=== PATIENT | male | born 1955 | race African-American/Black ===

== ENCOUNTER → 2017-05-10 | Day surgery (SDC) | payer BC ==
[~2017-05-10] VITALS: Ht 172.7 cm; Wt 127.0 kg
[~2017-05-10] MED LIST: ADLT ASA LOW81 MG PO; AMLODIPINE BESY10 MG PO; ASPIRIN 81 LOW81 MG; BP MED PO; CLONIDINE0.1 MG PO; EFFIENT10 MG PO; EFFIENT5 MG PO; FLEXERIL OR; GABAPENTIN300 MG PO; HYDROCHLOROT25 MG PO; LIPITOR40 M1 PO; LIPITOR40 MG OR; LIPITOR80 MG PO; LISINOPRIL20 M1 PO; LOPRESSOR 550 MG/TAB PO; LOTREL1 CA1 PO; MONOPRIL40 MG PO; NAPROSYN500 MG PO; NEXIUM40 M1 OR; SIMVASTATIN80 MG PO; TRAMADOL HCL50 MG PO
[2017-05-10 17:58] VITALS: BP 102/52
== END | disposition home or self-care (01) | DRG 951 ==
LOC: ENDO 14:15
PROVIDERS: ATTEND Internal Medicine Gastroenterology
PROC: 0DBN8ZX Excision of Sigmoid Colon, Via Natural or Artificial Opening Endoscopic, Diagnostic (ICD-10-PCS; principal; 2017-05-10)
DX: Z12.11 Encounter for screening for malignant neoplasm of colon (principal); I10 Essential (primary) hypertension; K63.5 Polyp of colon; K64.4 Residual hemorrhoidal skin tags; K64.8 Other hemorrhoids; E78.00 Pure hypercholesterolemia, unspecified; Z86.010 Personal history of colon polyps; Z95.5 Presence of coronary angioplasty implant and graft; Z85.46 Personal history of malignant neoplasm of prostate

== ENCOUNTER 2018-11-20 13:38 | Inpatient (IN) | payer BC ==
[~2018-11-20] VITALS: Ht 172.7 cm; Wt 128.0 kg
--- NOTE | 2018-11-20 14:08 | NUR ---
PT TRIAGED AND RETURNED TO WAITING ROOM WITH . PT AMBULATORY TO LOBBY/
--- NOTE | 2018-11-20 14:49 | NUR ---
P TMAB TO ROOM AND EKG PERFORMED ALL MONITORS ASSESSED. STILL C.O DIFFUSE ABD OAIN
--- NOTE | 2018-11-20 15:27 | NUR ---
MEDICATED FOR CRAMPING ABD PAIN AND NAUSEA
[2018-11-20 15:50] LABS: HEMATOCRIT 42.3 % (39.0-50.0); HEMOGLOBIN 14.9 g/dl (14.0-18.0); IMMATURE GRANULOCYTES 0.3 % (0.0-5.0); MEAN CELL VOLUME 77.2 fL CALC (80.0-100.0); MEAN CORPUSCULAR HGB 27.2 pG CALC (26.0-32.0); MEAN CORPUSCULAR HGB CONC 35.2 g/L CALC (32.0-36.0); NEUT# 8.37 thou/uL (1.82-7.42); RED BLOOD COUNT 5.48 mill/uL (4.70-6.10); RED CELL DISTRI WIDTH 13.2 % (11.5-15.5)
[2018-11-20 16:05] LABS: ALBUMIN 4.4 g/dL (3.2-5.0); ANION GAP 13 (6-22 (CALC)); BILIRUBIN, TOTAL 0.8 mg/dL (0.0-1.4); BUN 8 mg/dL (8-23); BUN/CREATININE RATIO 10 (12-20 (CALC)); CARBON DIOXIDE 29 mmol/l (22-30); CHLORIDE 101 mmol/l (95-108); CREATININE 0.8 mg/dL (0.7-1.3); GFR > 60 ML/MIN (>=60 (CALC)); GFR FOR AFR.AMER. > 60 ML/MIN (>=60 (CALC)); LIPASE 101 u/l (23-300); POTASSIUM 3.8 mmol/l (3.5-5.1); SGOT/AST 27 u/l (19-48); SODIUM 139 mmol/l (137-146); TOTAL PROTEIN 8.5 g/dL (6.3-8.2)
[2018-11-20 16:06] LABS: ALKALINE PHOSPHATASE 157 u/l (38-126)
--- NOTE | 2018-11-20 16:10 | NUR ---
PT REPORTS CONTINUED ABD PAIN, MD NOTIFIED AND AWAITING NEW ORDERS.
--- NOTE | 2018-11-20 16:30 | NUR ---
PT REPORTS PAIN 5/10 AT THIS TIME AND IS RESTING COMFORTABLY IN NAD. PT REPORTS THE "MORPHINE HAS JUST MASKED THE PAIN". ASKING IF THEY WILL BE DOING A CT WITH CONTRAST. MD NOTIFIED AND AWAITING NEW ORDERS.
--- NOTE | 2018-11-20 16:30 | NUR ---
PT MEDICATED PER ORDERED FOR 8/10 ABD PAIN. PT AND UPDATED ON PLAN OF CARE AND WAIT TIME. CALL BAEZA WITHIN REACH.
--- NOTE | 2018-11-20 18:30 | NUR ---
PT MOVED TO ROOM 13, URINAL GIVEN TO PT.
[2018-11-20] MEDS ORDERED: SIMVASTATIN20 MG PO (18:46)
[2018-11-20 18:56] LABS: URINE BILIRUBIN - DIPSTICK NEGATIVE (NEGATIVE); URINE BLOOD DIPSTICK NEGATIVE (NEGATIVE); URINE COLOR YELLOW; URINE GLUCOSE - DIPSTICK NEGATIVE (NEGATIVE); URINE KETONE NEGATIVE (NEGATIVE); URINE LEUK ESTERASE NEGATIVE (NEGATIVE); URINE NITRITE - DIPSTICK NEGATIVE (Negative); URINE PH 8.5 (4.5-8.0); URINE PROTEIN - DIPSTICK TRACE mg/dL (NEG-TRACE); URINE SPECIFIC GRAVITY 1.015
--- NOTE | 2018-11-20 18:56 | NUR ---
ERP AT BEDSIDE.
--- NOTE | 2018-11-20 19:46 | NUR ---
PT C/O RETURNED ABD PAIN, DR BEAN INFORMED.
--- NOTE | 2018-11-20 19:51 | NUR ---
DR BEAN AT BEDSIDE TO DISCUSS FINDINGS.
--- NOTE | 2018-11-20 20:10 | NUR ---
MEDICATED PER ERP ORDERS.
--- NOTE | 2018-11-20 20:35 | NUR ---
PT RELATED PAINS TAKING THE EDGE OFF. PAIN REMAINS 04/25. NO DISTRESS NOTED.
--- NOTE | 2018-11-20 20:52 | NUR ---
[facility] CALLED FOR REPORT, NURSE NOT AVAILABLE, WILL RETURN CALL.
--- NOTE | 2018-11-20 21:15 | NUR ---
REPORT CALLED TO [facility].
--- NOTE | 2018-11-20 21:17 | NUR ---
PT TO RM 263 WITH RN. PT COND STABLE.
--- NOTE | 2018-11-20 21:22 | NUR ---
PT ARRIVED TO MS2 VIA STRETCHER ACCOMPANIED BY FAMILY AND ER NURSE. ORIENTED TO ROOM AND CALL LIGHT. PT AMBULATED TO BATHROOM, NO SIGNS OF DISTRESS NOTED, RESP EVEN AND UNLABORED. PT C/O ABD PAIN 06/25. DISCUSSED POC, ADMISSION ASSESSMENT COMPLETED, CHARLIE LIGHT IN REACH,CONTINUE TO MONITOR.
[2018-11-20 21:25] VITALS: BP 174/82
--- NOTE | 2018-11-20 22:41 | NUR ---
PT MEDICATED FOR PAIN 06/25, WILL AWAIT RESULTS. OFFERED PT A SANDWICH, PT BECAME C/O NAUSEA, NO VOMITTING NOTED. PT MEDICATED WITH ZOFRAN. CALL LIGHT IN REACH,CONTINUE TO MONITOR.
--- NOTE | 2018-11-20 23:55 | NUR ---
PT RESTING IN BED, WITH CPAP FROM HOME, NO SIGNS OF DISTRESS NOTED, RESP EVEN AND UNLABORED. IV CIPRO HUNG AT THIS TIME. PT VOICES NO NEEDS OR COMPLAINTS AT THIS TIME. CALL LIGHT IN REACH,CONTINUE TO MONITOR.
[2018-11-21 03:59] VITALS: BP 144/75
--- NOTE | 2018-11-21 04:00 | NUR ---
PT RESTING IN BED WITH EYES CLOSED, NO SIGNS OF DISTRESS NOTED, RESP EVEN AND UNLABORED. CPAP FROM HOME ON. CALL LIGHT IN REACH,CONTINUE TO MONITOR.
--- NOTE | 2018-11-21 07:15 | NUR ---
PT REPORT RECIEVED FROM JASON GRAHAM. PT ASLEEP IN BED. NO S/S OF DISTRESS. CALL LIGHT IN REACH. WILL CONTINUE TO MONITOR.
[2018-11-21 08:23] VITALS: BP 156/80
--- NOTE | 2018-11-21 08:23 | NUR ---
PT A/O X3. SPEECH IS CLEAR. RESP EVEN AND UNLABORED. LUNG SOUNDS CLEAR. BOWEL SOUNDS ACTIVE X4. STRONG RADIAL AND PEDAL PULSES. #20 RAC NS@100. SITE APPEARS HEALTHY. PT C/O ACHING/THROBBING PAIN TO ABDOMEN. 9 OUT OF 10 ON PAIN SCALE. MEDICATED W/ 0.5 MG DILAUDID. REPOSITIONED FOR COMFORT. SKIN IS INTACT. PT DENIES ANY FURTHER NEEDS. NPO AT THIS TIME. SAFETY PRECAUTIONS IN PLACE. CALL LIGHT IN REACH. WILL CONTINUE TO MONITOR.
--- NOTE | 2018-11-21 12:10 | NUR ---
PT RESTING IN BED, C/O ABDOMINAL PAIN 5 OUT OF 10 ON PAIN SCALE. MEDICATION ADMINISTRATION DISCUSSED. PT STATES UNDERSTANDING. RELAXATION TECHNIQUES IN PLACE. CALL LIGHT IN REACH. WILL CONTINUE TO MONITOR.
--- NOTE | 2018-11-21 15:24 | NUR ---
DR. AL IN TO SEE PT
[2018-11-21 16:10] VITALS: BP 143/56
--- NOTE | 2018-11-21 19:00 | NUR ---
RECEIVED REPORT FROM DAY NURSE. PT RESTING QUIETLY IN BED WITH EYES CLOSED. AT BEDSIDE. NO NEEDS AT THIS TIME. CALL BAEZA IN REACH. WILL CONTINUE TO MONITOR.
[2018-11-21 19:23] VITALS: BP 150/68
--- NOTE | 2018-11-21 20:48 | NUR ---
PT RESTING IN BED WITH AT BEDSIDE. PT A&0 x3. PT RESTING WITH EYES CLOSED WITH CPAP MACHINE ON. REQUESTING PAIN MEDS FOR PT. ASSESMENT COMPLETED AT THIS TIME(SEE INTERVENTIONS) LUNG SOSUNDS CLEAR, HEART SOUNDS NORMAL, BOWEL SOUNDS ACTIVE, ABD TENDERNESS TO UPPER R QUAD, NO SWELLING OR EDEMA NOTED. NO OTHER NEEDS AT THIS TIME. CALL BAEZA IN REACH. WILL CONTINUE TO MONITOR.
[2018-11-22] VITALS (17 sets, daily range): BP systolic 105–163; BP diastolic 55–82
--- NOTE | 2018-11-22 | NUR ---
PT RESTING IN BED WITH CPAP ON. NO S/S OF DISTRESS NOTED. CALL BAEZA IN REACH. WILL CONTINUE TO MONITOR.
[2018-11-22 05:30] LABS: HEMATOCRIT 36.8 % (39.0-50.0); IMMATURE GRANULOCYTES 0.2 % (0.0-5.0); MEAN CELL VOLUME 77.6 fL CALC (80.0-100.0); MEAN CORPUSCULAR HGB 26.8 pG CALC (26.0-32.0); MEAN CORPUSCULAR HGB CONC 34.5 g/L CALC (32.0-36.0); NEUT# 6.98 thou/uL (1.82-7.42); RED BLOOD COUNT 4.74 mill/uL (4.70-6.10); RED CELL DISTRI WIDTH 13.5 % (11.5-15.5)
[2018-11-22 05:32] LABS: HEMOGLOBIN 12.7 g/dl (14.0-18.0)
--- NOTE | 2018-11-22 05:50 | NUR ---
PT C/O 20/ PAIN. PT MEDICATED PER ORDER. NO OTHER NEEDS AT THIS TIME.
[2018-11-22 06:06] LABS: ALKALINE PHOSPHATASE 111 u/l (38-126); AMYLASE 129 u/l (30-110); ANION GAP 14 (6-22 (CALC)); BILIRUBIN, TOTAL 0.8 mg/dL (0.0-1.4); BUN 11 mg/dL (8-23); BUN/CREATININE RATIO 11 (12-20 (CALC)); CARBON DIOXIDE 28 mmol/l (22-30); CHLORIDE 100 mmol/l (95-108); GFR > 60 ML/MIN (>=60 (CALC)); GFR FOR AFR.AMER. > 60 ML/MIN (>=60 (CALC)); LIPASE 138 u/l (23-300); MAGNESIUM 1.9 mg/dL (1.6-2.3); SGOT/AST 22 u/l (19-48); SODIUM 138 mmol/l (137-146)
--- NOTE | 2018-11-22 06:15 | NUR ---
PT REPORT RECIEVED FROM JASON APARICIO. PT SITTING ON SIDE OF BED. NO S/S OF DISTRESS. CALL LIGHT IN REACH. AT BEDSIDE. WILL CONTINUE TO MONITOR.
[2018-11-22 06:17] LABS: ALBUMIN 3.5 g/dL (3.2-5.0); TOTAL PROTEIN 6.6 g/dL (6.3-8.2)
--- NOTE | 2018-11-22 06:50 | NUR ---
PT A/O X3. SPEECH IS CLEAR. RESP EVEN AND UNLABORED. LUNG SOUNDS CLEAR. BOWEL SOUNDS ACTIVE X4. STRONG RADIAL AND PEDAL PULSES. #22 LAC LR @150. SITE APPEARS HEALTHY. SKIN INTACT. PT C/O ABDOMINAL PAIN 8 OUT OF 10 ON PAIN SCALE. MEDICATION ADMINISTRATION DISCUSSED W/ PT. PT STATES UNDERSTANDING. PREPARING PT TO BE SENT DOWN TO THE OR. PT DENIES ANY FURTHER NEEDS. POC DISCUSSED. SAFETY PRECAUTIONS IN PLACE. CALL LIGHT IN REACH. WILL CONTINUE TO MONITOR.
--- NOTE | 2018-11-22 08:16 | NUR ---
PT TRANSPORTED TO OR VIA STRETCHER ACCOMPIANED BY OR NURSE IN STABLE CONDITION.
--- NOTE | 2018-11-22 11:37 | NUR ---
PT TO ICU 8 FROM OR WITH OWN CPAP. PLACED ON MONITORS. 2 IV SITES & CATH OLIVER. PT WEARING AN ABD BINDER.
--- NOTE | 2018-11-22 11:38 | NUR ---
REPORT GIVEN TO TYRONE RING
--- NOTE | 2018-11-22 11:48 | NUR ---
PT TO ICU 8 FROM OR WITH OWN CPAP. PLACED ON MONITORS. 2 IV SITES & CATH OLIVER. PT WEARING AN ABD BINDER.
--- NOTE | 2018-11-22 13:33 | NUR ---
SCD APPLIED TO PT. 2 CHILDREN @BEDSIDE. PT DENIES PAIN. DENIES NAUSEA. CALLBELL W/IN REACH. PT/FAMILY AWARE OF POC.
--- NOTE | 2018-11-22 14:20 | NUR ---
NO FAMILY AT BEDSIDE AT THIS TIME. PT RESTING IN BED, WITH EYES CLOSED. OPENS EYES TO SPEECH. ANSWERS QUESTIONS APPROPRIATELY. ABLE TO SEARS. DENIES PAIN. DENIES SOB. IN FOWLERS POSITION. WILL CONTINUE TO MONITOR. HOUSEKEEPING IN ROOM.
--- NOTE | 2018-11-22 15:19 | NUR ---
PT AWAKE & ALERT. 2 CHILDREN & MALE @BEDSIDE. ASSISTED PT WITH TV REMOTE AND REPOSITIONING IN BED. PT REMOVED OWN CPAP. SPEECH CLEAR. EYES WIDE OPEN. WATCHING SPORTS WITH VISITORS. REQUESTS ICE CHIPS. INSTRUCTED TO START SLOW TO PREVENT NAUSEA. STILL DENIES PAIN.
--- NOTE | 2018-11-22 15:22 | NUR ---
DR SHARMA TALKING TO IN HALLWAY BEFORE ENTERING ROOM WITH PT.
--- NOTE | 2018-11-22 15:38 | NUR ---
LARGE NUMBER OF VISITORS IN ROOM NOW. FAMILY COMPLAINING WE WONT BRING A COUCH FOR TO SLEEP ON TONIGHT. COMPLAINING THAT [employer] DONT FEED YOU ANY MORE ( [employer] NOT OPEN AT NIGHT FOR DINNER). PT DENIED NAUSEA FROM ICE CHIPS. GIVEN A CUP OF ORANGE JUICE, INSTRUCTED AGAIN TO DRINK SLOWLY.
--- NOTE | 2018-11-22 16:12 | NUR ---
PT TO ICU 1 FROM ER BY STRETCHER. ABLE TO MOVE SELF OVER TO NEW BED.
--- NOTE | 2018-11-22 16:13 | NUR ---
PT MEDICATED FOR 8/10 GENERALIZED ABD PAIN. PT STATES HES BEEN TAKING DILAUDID BUT GETS DRY HEAVES WITH IT. PT MEDICATED FOR NAUSEA AND GIVEN EMESIS BAGS. FAMILY ALSO ASKED FOR CHAPSTICK. PT PLACED ON 2L NC AFTER 02 STATS DROP TO 89% AFTER DIALUDID.
--- NOTE | 2018-11-22 16:26 | NUR ---
PT SLEEPING, APPEARS COMFORTABLE. OPENS EYES TO SPEECH. DENIES NAUSEA.
--- NOTE | 2018-11-22 18:27 | NUR ---
CALLED DR AL TO CLARIFY HEPARIN 5000units Q6H. STATES HE WANTS PT TO HAVE 20,000unit/DAY.
--- NOTE | 2018-11-22 18:39 | NUR ---
PT REQUEST MORE PAIN MEDICATION, STATING THE DILAUDID HELPS BUT THEN THE PAIN COMES BACK. PT ATE TOMATO SOUP & DRINKING WATER/JUICE W/OUT DIFFICULTY. ASKED FOR BLANKET.
--- NOTE | 2018-11-22 19:10 | NUR ---
BEDSIDE REPORT RECEIVED FROM TYRONE ORDOÑEZ. PT RESTING IN BED SEMI FOWLERS; ALERT AND ORIENTED. AT BEDSIDE. PT STATES THAT LORTAB IS EFFECTIVE FOR ABDOMINAL PAIN. RESPOIRATIONS EVEN AND UNLABORED WITH CPAP ON; REQUESTING MORE DISTILLED WATER FOR CPAP. RT AT BEDSIDE. PLAN OF CARE DISCUSSED. PT ENCOURAGED TO VERBALIZE CONCERNS; STATES UNDERSTANDING. SAFETY MEASURES IN PLACE. CALL LIGHT WITHIN REACH.
--- NOTE | 2018-11-22 19:37 | NUR ---
ASSESSMENT COMPLETE. INCENTIVE SPIROMETER PROVIDED.
--- NOTE | 2018-11-22 21:00 | NUR ---
ABDOMINAL PAIN HAS INCREASED TO 10/. PT REQUESTED POSITION CHANGE; NOW SITTING UP ON EDGE OF BED. TEMPERATURE INCREASED TO 100.9; TYLENOL GIVEN WITH HS MEDS. CIPRO INFUSING WITHOUT DIFFICULTY; IV SITE APPEARS HEALTHY. CONCERNED ABOUT UPPER EXTREMITIES APPEARING MORE SWOLLEN; WILL ELEVATE ON PILLOWS. NO SIGNS OF INFILTRATION AT IV SITE.
--- NOTE | 2018-11-22 22:00 | NUR ---
PAIN DECREASED TO A 7/10 AFTER DILAUDID AND PT ASKING WHEN HE CAN HAVE ANOTHER DOSE OF MEDICATION. TEMPERATURE NOW 101.0; WILL REASSESS. PT NOW RESTING SEMI FOWLERS WITH ARMS ELEVATED ON PILLOW AND APPEARS MORE COMFORTABLE. SONATA GIVEN FOR SLEEP PER PT REQUEST. OLIVER CATHETER DRAINING CLEAR YELLOW URINE IN ADEQUATE AMOUNTS.
--- NOTE | 2018-11-22 23:00 | NUR ---
TEMPERATURE DECREASED TO 99.7. LORTAB GIVEN PER PT REQUEST FOR ABDOMINAL PAIN OF 03/25. RESPIRATIONS EVEN AND UNLABORED WITH CPAP ON. FLAGYL INFUSING.
[2018-11-23] VITALS (14 sets, daily range): BP systolic 98–183; BP diastolic 62–82
--- NOTE | 2018-11-23 01:08 | NUR ---
PT ASLEEP AT THIS TIME WITH NO SIGNS OF DISTRESS; AWAKENS SPONTANEOULYS WHEN ENTERING ROOM AND ASKS WHAT THE TIME IS TO KEEP TRACK OF PAIN MEDICATIONS. CONTINUES TO RATE ABDOMINAL PAIN AT A 7/10. ABDOMINAL BINDER REMAINS IN PLACE AND SECURE. REMAINS AT BEDSIDE. IV FLUIDS INFUSING WITHOUT DIFFICULTY; IV SITE APPEARS HEALTHY.
--- NOTE | 2018-11-23 03:13 | NUR ---
PT AWAKENED WITH SEVERE 10/10 ADBOMINAL PAIN. PT STATES DILAUDID IS EFFECTIVE, BUT WITH SEVERE BREAKTHROUGH PAIN AND LORTAB IS NOT EFFECTIVE. TYLENOL ALSO GIVEN TO KEEP TEMPERATURE DOWN; CURRENTLY 99.7. SITTING UP ON EDGE OF BED AT THIS TIME WITH PILLOW FOR SPLINTING.
--- NOTE | 2018-11-23 04:19 | NUR ---
PT NOW RESTING IN SEMI FOWLERS WITH CPAP BACK ON. REMAINS AT BEDSIDE. PAIN NOW 04/25.
--- NOTE | 2018-11-23 05:50 | NUR ---
LORTAB GIVEN NOW; PAIN AGAIN AT A 10/10. PT REQUESTING INCREASED FREQUENCY FOR PAIN MEDICATION.
[2018-11-23 06:00] LABS: HEMATOCRIT 38.6 % (39.0-50.0); HEMOGLOBIN 13.5 g/dl (14.0-18.0); IMMATURE GRANULOCYTES 0.2 % (0.0-5.0); MEAN CELL VOLUME 78.3 fL CALC (80.0-100.0); MEAN CORPUSCULAR HGB 27.4 pG CALC (26.0-32.0); NEUT# 6.53 thou/uL (1.82-7.42); RED BLOOD COUNT 4.93 mill/uL (4.70-6.10); RED CELL DISTRI WIDTH 13.6 % (11.5-15.5)
[2018-11-23 06:07] LABS: ALBUMIN 3.2 g/dL (3.2-5.0); ALKALINE PHOSPHATASE 105 u/l (38-126); AMYLASE 118 u/l (30-110); ANION GAP 12 (6-22 (CALC)); BUN 12 mg/dL (8-23); BUN/CREATININE RATIO 11 (12-20 (CALC)); CARBON DIOXIDE 27 mmol/l (22-30); CHLORIDE 101 mmol/l (95-108); CREATININE 1.1 mg/dL (0.7-1.3); GFR > 60 ML/MIN (>=60 (CALC)); GFR FOR AFR.AMER. > 60 ML/MIN (>=60 (CALC)); LIPASE 81 u/l (23-300); MAGNESIUM 1.8 mg/dL (1.6-2.3); POTASSIUM 3.9 mmol/l (3.5-5.1); SGOT/AST 27 u/l (19-48); SODIUM 136 mmol/l (137-146); TOTAL PROTEIN 6.2 g/dL (6.3-8.2)
--- NOTE | 2018-11-23 06:50 | NUR ---
REPORT RECVD FROM TYRONE WILLOUGHBY AT START OF SHIFT.
--- NOTE | 2018-11-23 07:30 | NUR ---
PT FOUND STANDING UP IN ROOM BY BED. ASSISTED PT TO CHAIR. PT/ REMINDED TO USE CALLBELL FOR ASSISTANCE BEFORE GETTING OUT OF BED.
--- NOTE | 2018-11-23 07:36 | NUR ---
INSIST ON LAC DC'D BC IT IS SWOLLEN. NO SWELLING, REDNESS, HEAT TO AREA AT ALL. NO EDEMA NOTED TO ARM ANYWHERE. VERY UNFRIENDLY WITH STAFF. PT/ ARGUING WITH STAFF ABOUT NEXT DOSE OF PAIN MEDS DUE. ACCUSSING STAFF OF "TRYING TO PULL SOMETHING OVER ON THEM". LAST DOSE OF MEDICATIONS WRITTEN ON BOARD.
--- NOTE | 2018-11-23 07:51 | NUR ---
ARMATURE WINDER REPAIR HELPER CALLED IN FOR ASSISTANCE WIT PT & .
--- NOTE | 2018-11-23 08:04 | NUR ---
WALKING DOWN KAMARA WITH PT & HOUSE SUP.
--- NOTE | 2018-11-23 08:19 | NUR ---
PT STATES HE DIDNT KNOW WHAT HE WAS DOING ORDERING WHAT HE DID FOR BREAKFAST TODAY. REQUESTED OATMEAL FROM [employer] INSTEAD.
--- NOTE | 2018-11-23 08:27 | NUR ---
ANIVAL SUP WILL CONTACT RE: INQUIRING ABOUT PAIN MED CHANGES
--- NOTE | 2018-11-23 09:54 | NUR ---
PT SITTING UP IN CHAIR. GIVEN AM MEDS. CARDENAS ON PT. PT STATES "HES FINALLY ABLE TO RELAX".
--- NOTE | 2018-11-23 10:11 | NUR ---
ON [facility].
--- NOTE | 2018-11-23 10:50 | NUR ---
DR AL @BEDSIDE WITH PT/. EDUCATING PT RE: SURGERY & BIOPSY. DR AL APPROVES TRANSFER TO [facility]. ADVISED PT/ THAT HE WILL BE ABLE TO MAKE RECOMMENDATIONS FOR FURTHER CARE ONCE BIOPSY RESULTS COME BACK. MIKAELA ADVISED PT TO EAT AND MOVE ALOT. ADVISED PT/ ABOUT POST OP EXPECTANCIES/NORMALCIES. DR AL REMOVED DRESSING. NEW DRESSING APPLIED: ABD PAD x2 WITH MEDIPORE TAPE. MULTIPLE AMOUNT OF CARROLL TO MID ABD. NO EDEMA AROUND CARROLL, NO OPEN AREAS, NO HEAT OR REDNESS. SMALL AMOUT OF SEROSANGUINOUS BLOOD ON OLD DRESSING NEAR BOTTOM/DISTAL ABD.
--- NOTE | 2018-11-23 11:27 | NUR ---
PT REQUESTED MORE PAIN MEDS. ALSO APPLIED HOT COMPRESS TO ABD.
--- NOTE | 2018-11-23 11:50 | NUR ---
PT DENIES LUNCH AT THIS TIME. STATES HE FEELS GOOD RIGHT NOW AND WANTS TO RELAX. TRAY KEPT IN ROOM. IN CHAIR. PT LAYING IN BED, HOME CPAP ON.
--- NOTE | 2018-11-23 13:37 | NUR ---
REPORT GIVEN TO JASON STALLWORTH ON MSU. JASON AWARE THAT DR AL GAVE PERMISSION FOR CATH OLIVER TO BE REMOVED TODAY BUT WANTS THE KEEP THE OLIVER IN.
--- NOTE | 2018-11-23 14:32 | NUR ---
PT TRANSFERED TO [facility] 263 BY WITHOUT COMPLICATION. FOLLOWED WITH ALL OF PTS BELONGINGS, INCLUDING HOME CPAP. PT ABLE TO TRANSFER TO & NEW BED WITH MINIMUM ASSISTANCE.
--- NOTE | 2018-11-23 15:33 | NUR ---
PT RESTING IN BED. PAIN TO ABDOMEN IS CURRENTLY A 5 OUT OF 10. IV DILUADID PREVIOUSLY GIVEN. PT REPOSITIONED IN BED. LIGHTS ADJUSTED FOR COMFORT. PT DENIES ANY FURTHER NEEDS. CALL LIGHT IN REACH. WILL CONTINUE TO MONITOR.
--- NOTE | 2018-11-23 19:00 | NUR ---
REPORT RECEIVED FROM JASON STALLWORTH. PT RESTING IN BED. PT REPORTS HAVING PAIN OF A 10 OUT OF 10, PT TO BE MEDICATED PER EMAR ORDERS. SAFETY PRECAUTIONS IN PLACE, WILL CONTINUE TO MONITOR.
--- NOTE | 2018-11-23 19:43 | NUR ---
PT RESTING IN BED ALERT AND ORIENTED. RESPIRATIONS EVEN AND UNLABORED ON O2 VIA NC @ 2L. IV # 20 RAC INFUSING LR @ 100 ML/HR, SITE APPEARS HEALTHY. ABDOMINAL BINDER IN PLACE OVER ABDOMINAL DRESSING, SMALL AMOUNT OF DRAINAGE NOTED ON DRESSING. PT MEDICATED FOR PAIN AT THIS TIME PER MADI EDWARDS. SAFETY PRECAUTIONS IN PLACE, WILL CONTINUE TO MONITOR.
--- NOTE | 2018-11-24 00:46 | NUR ---
PT RESTING IN BED. ALERT AND ORIENTED. AT BEDSIDE. PT REPORTS PAIN OF A 10 OUT OF 10 AND IS WANTING TO WALK TO THE END OF THE KAMARA BEFORE BEING MEDICATED. PT AMBULATED TO THE END OF KAMARA AND BACK TO BED PT DENIES AND DIZZINESS, GATE STEADY. ASSISTED PT BACK INTO BED. PT MEDICATED FOR PAIN. DRAINAGE NOTED ON DRESSING, DRESSING CHANGED. ABD PADS APPLIED AND TAPED WITH PAPER TAPE. ABDINAL BINDER REPLACED. PT EDUCATED ON OLIVER REMOVAL, PT AND AGREED WITH OLIVER BEING REMOVED. 850CC OF URINE DRAINED FROM OLIVER. OLIVER REMOVED PT TOLERATED WELL. WILL CONTINUE TO MONITOR.
--- NOTE | 2018-11-24 04:20 | NUR ---
PT RESTING IN BED WITH EYES CLOSED, AT BEDSIDE. NO SIGNS OR SYMPTOMS OF DISTRESS AT THIS TIME. WILL CONTINUE TO MONITOR.
[2018-11-24 04:31] VITALS: BP 135/78
[2018-11-24 05:22] LABS: HEMATOCRIT 37.6 % (39.0-50.0); HEMOGLOBIN 13.1 g/dl (14.0-18.0); IMMATURE GRANULOCYTES 0.4 % (0.0-5.0); MEAN CELL VOLUME 78.2 fL CALC (80.0-100.0); MEAN CORPUSCULAR HGB 27.2 pG CALC (26.0-32.0); MEAN CORPUSCULAR HGB CONC 34.8 g/L CALC (32.0-36.0); NEUT# 7.6 thou/uL (1.82-7.42); RED BLOOD COUNT 4.81 mill/uL (4.70-6.10); RED CELL DISTRI WIDTH 13.5 % (11.5-15.5)
[2018-11-24 05:38] LABS: ALBUMIN 3.3 g/dL (3.2-5.0); ALKALINE PHOSPHATASE 108 u/l (38-126); ANION GAP 13 (6-22 (CALC)); BILIRUBIN, TOTAL 0.8 mg/dL (0.0-1.4); BUN 9 mg/dL (8-23); BUN/CREATININE RATIO 10 (12-20 (CALC)); CARBON DIOXIDE 29 mmol/l (22-30); CHLORIDE 100 mmol/l (95-108); CREATININE 0.9 mg/dL (0.7-1.3); GFR > 60 ML/MIN (>=60 (CALC)); GFR FOR AFR.AMER. > 60 ML/MIN (>=60 (CALC)); MAGNESIUM 1.8 mg/dL (1.6-2.3); POTASSIUM 3.6 mmol/l (3.5-5.1); SGOT/AST 36 u/l (19-48); SODIUM 138 mmol/l (137-146); TOTAL PROTEIN 6.3 g/dL (6.3-8.2)
--- NOTE | 2018-11-24 07:34 | NUR ---
REPORT RECEIVED FROM STACY; PT SITTING UP EDGE OF BED EATING BREAKFAST; FAMILY MEMBER AT BEDSIDE; CALL BAEZA IN REACH.
[2018-11-24 08:55] VITALS: BP 156/82
--- NOTE | 2018-11-24 09:25 | NUR ---
ASSESSMENT COMPLETED; SITTING UP IN BED; ABD DRESSING CDI; ABD BINDER IN PLACE; C/O PAIN 06/25, MEDICATED WITH DILAUDID; VOIDED 200CC, CLEAR YELLOW URINE IN THE URINAL; AM MEDS ADMINISTERED; CIPRO INFUSING, IV SITE APPEARS HEALTHY; CALL BAEZA IN REACH; SAFETY PRECAUTION REINFORCE;
--- NOTE | 2018-11-24 12:19 | NUR ---
ASSISTING PT WITH LUNCH; MEDICATED PER EMAR; RESP EVEN AND UNLABORED; CALL BAEZA IN REACH; VOICE NO CONCERNS;
--- NOTE | 2018-11-24 13:24 | NUR ---
DR SHARMA AT BEDSIDE TO DISCUSS POC
--- NOTE | 2018-11-24 16:02 | NUR ---
SITTING UP IN CHAIR; C/O OF ABD PAIN 04/25 MEDICATED WITH LORATAB, STATED "LORATAB DOES NOTHING FOR ME" WILL REASSSES PAIN; REFUSING DRESSING CHANGE AT THE MOMENT; FAMILY MEMBER AT BEDSIDE;
[2018-11-24 17:18] VITALS: BP 170/81
--- NOTE | 2018-11-24 18:08 | NUR ---
ABD DRESSING CHANGE DONE, PT TOLERATED WELL; VOICE NO CONCERNS; FAMILY AT BEDSIDE; STATED HE WILL EAT WHEN HIS GETS HERE; CALL BAEZA IN REACH.
[2018-11-24 19:30] VITALS: BP 148/62
--- NOTE | 2018-11-24 20:10 | NUR ---
PT. SITTING UP IN CHAIR; NO RESP . DISTRESS NOTED; C/O ABD PAIN 10/10; MEDICATED WITH ORDERED PRN DILAUDID PER ORDER AND PER PT'S PREFERENCE AND ORDER; WILL REASSESS; DRESSING TO ABD INTACT WITH SMALL AREA NOTED WITH DRAINAGE; ASSESSMENT COMPLETED;WILL CONTINUE TO MONITOR; ENCOURAGED TO USE I/S; CALL LIGHT IS IN REACH; DENIES FURTHER NEEDS;
--- NOTE | 2018-11-24 22:29 | NUR ---
AMBULATING DOWN HALLS TO ASSIST WITH BM; STEADY GAIT.
--- NOTE | 2018-11-25 00:28 | NUR ---
ASSESSED TEMP AND IS 97.6; PT. DENIES NEEDS FOR PAIN MEDICATION; SCHED HEPARIN GIVEN; ICE AND WATER PROVIDED; CALL LIGHT IS IN REACH; WILL CONTINUE TO MONITOR.
--- NOTE | 2018-11-25 03:02 | NUR ---
PT. UP AMBULATING TO THE BATHROOM TO ATTEMPT TO HAVE BM; DENIES NEEDS; ENCOURAGED TO CALL FOR ANY NEEDS; CALL LIGHT IS IN REACH.
--- NOTE | 2018-11-25 04:05 | NUR ---
PT. MEDICATED WITH ORDERED PRN MOM WITH WARM PRUNE JUICE TO ASSIST WITH BM; PT. HAD A LIQUID BM EARLIER, BUT STLL FEELS LIKE HE HAS MORE; DRESSING TO ABDOMEN REMAINS THE SAME NO NEW DRAINAGE NOTED; INTACT; DENIES FURTHER NEEDS; CALL LIGHT IS IN REACH; WILL CONTINUE TO MONITOR.
[2018-11-25 04:09] VITALS: BP 162/81
[2018-11-25 05:05] LABS: HEMATOCRIT 41.2 % (39.0-50.0); HEMOGLOBIN 14.3 g/dl (14.0-18.0); IMMATURE GRANULOCYTES 0.4 % (0.0-5.0); MEAN CELL VOLUME 78.5 fL CALC (80.0-100.0); MEAN CORPUSCULAR HGB 27.2 pG CALC (26.0-32.0); MEAN CORPUSCULAR HGB CONC 34.7 g/L CALC (32.0-36.0); NEUT# 8.48 thou/uL (1.82-7.42); RED BLOOD COUNT 5.25 mill/uL (4.70-6.10); RED CELL DISTRI WIDTH 13.6 % (11.5-15.5)
[2018-11-25 05:22] VITALS: BP 129/69
[2018-11-25 05:28] LABS: ALBUMIN 3.7 g/dL (3.2-5.0); ALKALINE PHOSPHATASE 116 u/l (38-126); AMYLASE 154 u/l (30-110); ANION GAP 15 (6-22 (CALC)); BILIRUBIN, TOTAL 0.7 mg/dL (0.0-1.4); BUN 10 mg/dL (8-23); BUN/CREATININE RATIO 13 (12-20 (CALC)); CARBON DIOXIDE 26 mmol/l (22-30); CHLORIDE 102 mmol/l (95-108); CREATININE 0.8 mg/dL (0.7-1.3); GFR > 60 ML/MIN (>=60 (CALC)); GFR FOR AFR.AMER. > 60 ML/MIN (>=60 (CALC)); LIPASE 209 u/l (23-300); POTASSIUM 3.9 mmol/l (3.5-5.1); SGOT/AST 43 u/l (19-48); SODIUM 139 mmol/l (137-146); TOTAL PROTEIN 7.1 g/dL (6.3-8.2)
--- NOTE | 2018-11-25 07:15 | NUR ---
PT REPORT RECIEVED FROM TYRONE JERONIMO. PT RESTING. NO S/S OF DISTRESS. CALL LIGHT IN REACH. WILL CONTINUE TO MONITOR
[2018-11-25 09:04] VITALS: BP 151/88
--- NOTE | 2018-11-25 09:04 | NUR ---
PT A/O X3. SPEECH IS CLEAR. RESP EVEN AND UNLABORED. LUNG SOUNDS CLEAR IN UPPER LOBES, DIMINISHED IN LOWER LOBES. BOWEL SOUNDS HYPOACTIVE. STRONG RADIAL AND PEDAL PULSES. #20 RAC SL. FLUSHED AND PATENT. SITE APPEARS HEALTHY. PT HAS A MID ABDOMINAL DRESSING W/ SMALL AMOUONT OF SEROSANGUINOUS DRAINAGE VISIBLE AND A SMALL DRESSING TO ABDOMEN WELL, CDI. ABDOMINAL BINDER IN PLACE. ABDOMEN DISTENDED AND FIRM. PT C/O ACHING ABDOMINAL PAIN 8 OUT FO 10 ON PAIN SCALE. MEDICATED W/ ONE LORTAB 5/325 PO. REPOSITIONED FOR COMFORT. DENIES ANY FURTHER NEEDS. POC DISCUSSED. SAFETY PRECAUTIONS IN PLACE. SCD IN PLACE. INCENTIVE SPIROMETER AT BEDSIDE. CALL LIGHT IN REACH. WILL CONTINUE TO MONITOR.
[2018-11-25 09:06] VITALS: BP 151/88
--- NOTE | 2018-11-25 12:27 | NUR ---
PT SITTING IN RECLINER TALKING W/ FRIENDS. NO C/O PAIN OR NEEDS. TELE IN PLACE. CALL LIGHT IN REACH. WILL CONTINUE TO MONITOR.
[2018-11-25] MEDS ORDERED: LORTAB5 PO (15:08)
--- NOTE | 2018-11-25 15:48 | NUR ---
D/C INSTRUCTIONS DISCUSSED W/ PT. PT STATES UNDERSTANDING. IV REMOVED CATHETER INTACT. DRESSING TO MID ABDOMEN CHANGED. PT GETTING DRESSED AT THS TIME.
--- NOTE | 2018-11-25 16:06 | NUR ---
Discharge instructions given. Patient verbalizes understanding of same. Discharged in stable condition via Wheelchair to Home with family. All belongings sent with pt.
== END 2018-11-25 16:07 | disposition home or self-care (01) | DRG 830 ==
LOC: ED 13:38 → ED-I 19:55 → MS2 20:06 → ED 20:06 → ICU 11-22 11:37 → MS2 11-22 16:07 → ICU 11-22 16:07 → MS2 11-23 14:14
PROVIDERS: Emergency Medicine; Internal Medicine Nephrology; ADMIT Internal Medicine; ATTEND Internal Medicine
PROC: 0DBV0ZX Excision of Mesentery, Open Approach, Diagnostic (ICD-10-PCS; principal; 2018-11-22)
PROC: 0DJV4ZZ Inspection of Mesentery, Percutaneous Endoscopic Approach (ICD-10-PCS; 2018-11-22)
DX: C7B.8 Other secondary neuroendocrine tumors (principal); C7A.8 Other malignant neuroendocrine tumors; I10 Essential (primary) hypertension; E78.5 Hyperlipidemia, unspecified; K59.00 Constipation, unspecified; G47.33 Obstructive sleep apnea (adult) (pediatric); M19.90 Unspecified osteoarthritis, unspecified site; Z95.5 Presence of coronary angioplasty implant and graft
CPT/HCPCS: J0131; J2710; Q9967; S0164

== ENCOUNTER 2019-01-09 07:18 | Observation (INO) | payer BC ==
[2019-01-09] VITALS (11 sets, daily range): BP systolic 130–151; BP diastolic 65–80
[~2019-01-09] VITALS: Ht 172.7 cm; Wt 125.0 kg
[~2019-01-09 07:18] MED LIST changes: +LORTAB5 PO; +SIMVASTATIN20 MG PO
[2019-01-09 07:52] LABS: HEMATOCRIT 39.7 % (39.0-50.0); HEMOGLOBIN 13.8 g/dl (14.0-18.0); IMMATURE GRANULOCYTES 0.1 % (0.0-5.0); MEAN CELL VOLUME 77.7 fL CALC (80.0-100.0); MEAN CORPUSCULAR HGB CONC 34.8 g/L CALC (32.0-36.0); NEUT# 3.92 thou/uL (1.82-7.42); RED BLOOD COUNT 5.11 mill/uL (4.70-6.10); RED CELL DISTRI WIDTH 13.8 % (11.5-15.5)
[2019-01-09 08:10] LABS: ALBUMIN 4.3 g/dL (3.2-5.0); ALKALINE PHOSPHATASE 137 u/l (38-126); ANION GAP 14 (6-22 (CALC)); BILIRUBIN, TOTAL 0.8 mg/dL (0.0-1.4); BUN 12 mg/dL (8-23); BUN/CREATININE RATIO 15 (12-20 (CALC)); CARBON DIOXIDE 27 mmol/l (22-30); CHLORIDE 103 mmol/l (95-108); CREATININE 0.8 mg/dL (0.7-1.3); GFR > 60 ML/MIN (>=60 (CALC)); GFR FOR AFR.AMER. > 60 ML/MIN (>=60 (CALC)); INTERNATIONAL NORMALIZED RATIO 0.9 RATIO (0.7-1.3); POTASSIUM 3.9 mmol/l (3.5-5.1); PROTHROMBIN TIME 9.9 SECONDS (9.0-12.5); SGOT/AST 21 u/l (19-48); SODIUM 140 mmol/l (137-146); TOTAL PROTEIN 7.6 g/dL (6.3-8.2)
[2019-01-09 08:22] LABS: MYOGLOBIN 38 ng/mL (0 - 121)
[2019-01-09] MEDS ORDERED: LIPITOR40 M1 PO (08:32)
[2019-01-09] MEDS ORDERED: OXYCODONE HCL5 MG PO (08:33)
[2019-01-09] MEDS ORDERED: IMIPRAM HCL25 M1 PO (08:34)
[2019-01-10 00:05] VITALS: BP 139/80
[2019-01-10 00:13] VITALS: BP 143/76
[2019-01-10 04:15] VITALS: BP 135/77
[2019-01-10 05:28] LABS: CHOLESTEROL HDL RATIO 3.2 (<4.4 (CALC))
[2019-01-10 08:50] VITALS: BP 149/76
== END 2019-01-10 13:35 | disposition home or self-care (01) | DRG 303 ==
LOC: ED 07:18 → ED-I 08:19 → ED 08:29 → ICU 08:30
PROVIDERS: Emergency Medicine; ADMIT Internal Medicine Nephrology; ATTEND Internal Medicine Nephrology
DX: I25.110 Atherosclerotic heart disease of native coronary artery with unstable angina pectoris (principal); C7A.8 Other malignant neuroendocrine tumors; I10 Essential (primary) hypertension; E78.5 Hyperlipidemia, unspecified; G47.33 Obstructive sleep apnea (adult) (pediatric); M19.90 Unspecified osteoarthritis, unspecified site; Z95.5 Presence of coronary angioplasty implant and graft; Z85.46 Personal history of malignant neoplasm of prostate

== ENCOUNTER 2019-07-23 22:18 | Emergency (ER) | payer BC ==
[~2019-07-23] VITALS: Ht 172.7 cm; Wt 116.2 kg
[~2019-07-23 22:18] MED LIST changes: +IMIPRAM HCL25 M1 PO; +OXYCODONE HCL5 MG PO
[2019-07-23] MEDS ORDERED: BRILINTA90 MG PO (22:49)
[2019-07-23] MEDS ORDERED: METHOCARBAM500 MG PO (22:51)
[2019-07-23] MEDS ORDERED: LOVENOX40 MG/0.4 SC (22:52)
[2019-07-23] MEDS ORDERED: METFORMIN500 MG PO (22:53)
[2019-07-23 23:23] LABS: HEMATOCRIT 31.1 % (39.0-50.0); IMMATURE GRANULOCYTES 0.4 % (0.0-5.0); MEAN CELL VOLUME 76.6 fL CALC (80.0-100.0); MEAN CORPUSCULAR HGB 27.1 pG CALC (26.0-32.0); MEAN CORPUSCULAR HGB CONC 35.4 g/L CALC (32.0-36.0); NEUT# 6.86 thou/uL (1.82-7.42); RED BLOOD COUNT 4.06 mill/uL (4.70-6.10); RED CELL DISTRI WIDTH 13.8 % (11.5-15.5)
[2019-07-23 23:42] LABS: ALBUMIN 3.6 g/dL (3.2-5.0); ALKALINE PHOSPHATASE 93 u/l (38-126); BILIRUBIN, TOTAL 0.5 mg/dL (0.0-1.4); BUN 7 mg/dL (8-23); BUN/CREATININE RATIO 10 (12-20 (CALC)); CARBON DIOXIDE 32 mmol/l (22-30); CREATININE 0.7 mg/dL (0.7-1.3); GFR > 60 ML/MIN (>=60 (CALC)); GFR FOR AFR.AMER. > 60 ML/MIN (>=60 (CALC)); POTASSIUM 3.3 mmol/l (3.5-5.1); SODIUM 136 mmol/l (137-146); TOTAL PROTEIN 6.7 g/dL (6.3-8.2)
[2019-07-23 23:43] LABS: ACT PARTIAL THROMBO TIME 27.1 SECONDS (20.0-32.5); ANION GAP 9 (6-22 (CALC)); CHLORIDE 98 mmol/l (95-108); INTERNATIONAL NORMALIZED RATIO 1.1 RATIO (0.7-1.3)
[2019-07-23 23:51] LABS: SGOT/AST 74 u/l (19-48)
[2019-07-23 23:54] LABS: URINE BILIRUBIN - DIPSTICK NEGATIVE (NEGATIVE); URINE BLOOD DIPSTICK TRACE-INTACT (NEGATIVE); URINE COLOR YELLOW; URINE GLUCOSE - DIPSTICK NEGATIVE (NEGATIVE); URINE KETONE NEGATIVE (NEGATIVE); URINE LEUK ESTERASE NEGATIVE (NEGATIVE); URINE NITRITE - DIPSTICK NEGATIVE (Negative); URINE PH 5.5 (4.5-8.0); URINE PROTEIN - DIPSTICK NEGATIVE (NEG-TRACE); URINE UROBILINOGEN - DIPSTICK 0.2 E.U./dL (0.2)
[2019-07-24 03:23] VITALS: BP 142/65
== END 2019-07-24 03:23 | disposition other institution (70) | DRG 379 ==
LOC: ED 22:18
PROVIDERS: Family Medicine
DX: K92.2 Gastrointestinal hemorrhage, unspecified (principal); Z98.0 Intestinal bypass and anastomosis status
CPT/HCPCS: Q9967

== ENCOUNTER 2022-02-08 09:35 | Day surgery (SDC) | payer MEDICARE ==
[~2022-02-08] VITALS: Ht 172.7 cm; Wt 106.6 kg
[~2022-02-08 09:35] MED LIST changes: -ASPIRIN 81 LOW81 MG; +ASPIRIN 81 LOW81 MG PO; +BRILINTA90 MG PO; +CETIRIZINE10 MG PO; +CLOPIDOGREL75 MG PO; +COLESTIPOL1 GM PO; +CREON3000 UNIT PO; +LOVENOX40 MG/0.4 SC; +METFORMIN500 MG PO; +METHOCARBAM500 MG PO; +METOPROLOL SUCC50 MG PO; +MONTELUKAST SOD10 MG PO; +TRAMADOL HYDROC50 M1 PO
[2022-02-08] MEDS ORDERED: PERCOCET 5/321 COMBO PO (11:16)
[2022-02-08 13:24] VITALS: BP 109/55
== END 2022-02-08 12:45 | disposition home or self-care (01) ==
LOC: ORM 09:35
PROVIDERS: ATTEND Surgery
PROC: 0H88XZZ Division of Buttock Skin, External Approach (ICD-10-PCS; principal; 2022-02-08)
DX: K61.0 Anal abscess (principal); I10 Essential (primary) hypertension
CPT/HCPCS: C9290; J0131